=== PATIENT | female | born 1985 | race Caucasian/White ===

== ENCOUNTER → 2018-01-23 | Outpatient (CLI) | payer BC ==
[~2018-01-23] MED LIST: ACET325 PO; AMOX500 PO; ARIP10 PO; CLIN150 PO; CLON.1 PO; CLON.5 PO; FLUO20; HYDACE5 PO; LEVO750 PO; MELA3 PO; METR500 PO; Melatonin5 M1 PO; OXYACE5T PO; OXYACE7.5T PO; PROM25 PO; RXLEVESTKI PO; SULTRISS PO; TERB250 PO; [UNRECOGNIZED DRUG - REMARK]
== END ==
LOC: LAB 17:47 → LAB SHORT 17:47
PROVIDERS: Registered Nurse Community Health
DX: Z12.4 Encounter for screening for malignant neoplasm of cervix (principal)
CPT/HCPCS: 87624; G0123